=== PATIENT | female | born 1980 | race Two or more races ===

== ENCOUNTER 2019-11-17 07:25 | Emergency (ER) | payer SELFPAY ==
[~2019-11-17] VITALS: Ht 162.6 cm; Wt 75.0 kg
--- NOTE | 2019-11-17 07:56 | PHYS DOC ---
General Adult EDM: Chief Complaint: COUGH HPI: HPI: Patient is a 39 year old [place]ian-speaking female who presents with cough and shortness of breath. Cough started 4 days ago and shortness of breath started this morning at 430. Patient feels like she cannot get a deep breath. She does not believe she has had any fevers. She has been fatigued. Her and [id number] both have coronavirus 19. She denies any chest pain, abdominal pain, nausea, vomiting, headache, weakness, numbness. She is able to walk short distances as well as up stairs without difficulty. Review of Systems: Review of Systems: General: Denies fever, chills, sweats. Reports fatigue Eyes: Denies drainage, blurred vision HENT: Denies rhinorrhea, sore throat Respiratory: reports cough, shortness of breath Cardiac: Denies edema, palpitations, chest pain GI: Denies abdominal pain, N/V MSK: Denies back pain, neck pain Skin: Denies rash, jaundice Neuro: Denies headache, dizziness Psychiatric: Denies SI/HI Heart Score: Risk Factors: Risk Factors: DM, Current or recent (<one month) smoker, HTN, HLP, family history of CAD, obesity. Risk Scores: Score 0 - 3: 2.5% MACE over next 6 weeks - Discharge Home Score 4 - 6: 20.3% MACE over next 6 weeks - Admit for Clinical Observation Score 7 - 10: 72.7% MACE over next 6 weeks - Early Invasive Strategies Physical Exam: PE: Constitutional: Well developed, well nourished, Cooperative, NAD, non-toxic appearing HEENT: Normocephalic, atraumatic, oropharynx moist, EOMI, PERRL, no drainage from eyes, normal conjunctiva Neck: Supple, normal range of motion, no stridor Cardiovascular: RRR, 2+ radial pulses bilaterally, no edema Respiratory: CTA bilaterally, no respiratory distress, no wheezing/crackles Abdomen: Soft, nontender, nondistended, no masses Skin: Warm, dry, intact Extremities: No obvious deformities Neurologic: Alert and Oriented x3, motor and sensory function grossly normal, no focal deficits Psychologic: Normal affect, normal judgment, normal mood. No SI/HI EKG: EKG: [] Radiology/Procedures: Radiology/Procedures: [] Course & Med Decision Making: Course & Med Decision Making Pertinent Labs and Imaging studies reviewed. (See chart for details) Patient is a 39-year-old female who presents to the emergency room with cough and shortness of breath. At this time there is concern for the novel coronavirus 19. Risk stratifying work-up was ordered including chest x-ray, d- dimer, CPK, CRP, LDH, troponin, CBC, CMP. Due to concern of COVID-19 I have discussed the importance of quarantining with the patient. I have discussed with them that they should avoid grocery stores, gas stations, pharmacies, work, friends/family's homes. I discussed with him that it is important that they do not expose themselves to anyone else for the next 14 days. Chest x-ray does not show infiltrates at this time and patient will not be treated with empiric a ntibiotics. I have discussed with the patient the course of the illness and we have discussed strict return precautions. At this time patient does not need admission as they are stable, however it is possible that they may get worse over the next few days and we have discussed the importance of coming back if they develop severe shortness of breath, neurologic deficits, or any other symptoms that they are concerned about. Patient's test results and vitals while in the ED were fully reviewed and discussed with the patient. Patient is stable and at this time does not need admission to the hospital. We have discussed strict return precautions and the importance of following up with their Primary Care Physician. Patient stated understanding and was given an opportunity to ask any questions. Elisabeth Disclaimer: Elisabeth Disclaimer: This electronic medical record was generated, in whole or in part, using a voice recognition dictation system. COVID-19 Patient Risks: Age 65 or older: No Sign of co-morbidity: No Exp to person + for COVID: Yes Exp to PUI: Yes Travel from affected area: No Lower respiratory symptoms: Yes Fever: No Other: No PPE Use: Full PPE with N95 mask or PAPR: Yes Departure Departure Impression: Primary Impression: 2019 novel coronavirus disease (COVID-19) Disposition: 01 HOME, SELF-CARE Condition: GOOD Referrals: NO PCP (PCP) Scripts Albuterol Sulfate (PROAIR HFA INHALER) 8.5 Gm Hfa.aer.ad 1 PUFF INH PRN Q6HRS PRN for SHORTNESS OF BREATH for 7 Days, #1 INHALER 0 Refills Prov: JOSIAH PENN MD 11/17/19 JOSIAH PENN MD Nov 17, 2019 07:56
[2019-11-17 08:29] LABS: BASO % 0 % (0-3); EOS # 0.1 x10^3/uL (0.0-0.7); EOS % 1 % (0-3); HEMATOCRIT 39.3 % (36.0-47.0); HEMOGLOBIN 13.4 g/dL (12.0-15.5); LYMPH # 1.7 x10^3/uL (1.0-4.8); LYMPH % 27 % (24-48); MEAN CORPUSCULAR HEMOGLOBIN 30 pg (25-35); MEAN CORPUSCULAR HGB CONC 34 g/dL (31-37); MEAN CORPUSCULAR VOLUME 89 fL (79-100); MONO # 0.4 x10^3/uL (0.0-1.1); MONO % 7 % (0-9); NEUT # 4.2 x10^3/uL (1.8-7.7); NEUT % 65 % (31-73); PLATELET COUNT 324 x10^3/uL (140-400); RED BLOOD COUNT 4.43 x10^6/uL (3.50-5.40); RED CELL DISTRIBUTION WIDTH 12.6 % (11.5-14.5); WHITE BLOOD COUNT 6.5 x10^3/uL (4.0-11.0)
[2019-11-17 08:38] LABS: ANION GAP 12 (6-14); BLOOD UREA NITROGEN 7 mg/dL (7-20); BUN/CREATININE RATIO 10 (6-20); CALCIUM 8.4 mg/dL (8.5-10.1); CARBON DIOXIDE 24 mmol/L (21-32); CHLORIDE 102 mmol/L (98-107); CREATININE 0.7 mg/dL (0.6-1.0); GFR 92.7; GLUCOSE 104 mg/dL (70-99); POTASSIUM 3.3 mmol/L (3.5-5.1); PREG TEST PT QUAL NEGATIVE (NEG); SODIUM 138 mmol/L (136-145)
[2019-11-17 08:44] LABS: ALBUMIN 3.6 g/dL (3.4-5.0); ALBUMIN/GLOBULIN RATIO 0.8 (1.0-1.7); ALK PHOS 54 U/L (46-116); ALT (SGPT) 59 U/L (14-59); AST (SGOT) 46 U/L (15-37); CREATINE KINASE 42 U/L (26-192); LACTATE DEHYDROGENASE 156 U/L (81-234); TOTAL BILIRUBIN 0.5 mg/dL (0.2-1.0)
[2019-11-17 08:49] LABS: C-REACTIVE PROTEIN < 0.5 mg/L (0-3.3)
--- NOTE | 2019-11-17 09:05 | RAD ---
AP view of the chest. Comparison: None Indication: Cough Findings: Normal lung volume. No focal airspace disease. Normal pulmonary vasculature. No pleural effusion. No pneumothorax. The cardiomediastinal silhouette is normal in appearance. The great vessels are normal. No acute osseous abnormality. Impression: No acute cardiopulmonary process. Electronically signed by: Armin March MD (11/17/2019 9:02 AM) [id number]
[2019-11-17] MEDS ORDERED: ALBU2.5V8 INH (09:39)
[2019-11-17 10:08] VITALS: BP 124/74
== END 2019-11-17 10:13 | disposition home or self-care (01) ==
LOC: ER 07:25
DX: U07.1 COVID-19 (principal); R05 Cough; R06.02 Shortness of breath; R53.83 Other fatigue
CPT/HCPCS: 36415; 71045; 80053; 82550; 83615; 84703; 85025; 85379; 86140; 99285